=== PATIENT | female | born 1955 | race Caucasian/White ===

== ENCOUNTER 2023-02-03 11:03 | Emergency (ER) | payer OTHER, SELFPAY ==
--- NOTE | 2023-02-03 | DI.CT.S_ITS ---
PROCEDURE: CT ANGIO HEAD AND NECK INDICATIONS: POS BEFAST TECHNIQUE: After the administration of intravenous contrast, 1 mm thick sections acquired from the aortic arch through the [place] of [place]. Post-contrast 4.5 mm thick sections then re-acquired from the foramen magnum to the vertex. 3-dimensional rttkeko-xvypxmfuz-stmxencmgf (MIP) and/or volume rendering reformats were acquired of the central intracranial vasculature and neck separately. For radiation dose reduction, the following was used: automated exposure control, adjustment of mA and/or kV according to patient size. COMPARISON: [facility], MR, MR BRAIN WITHOUT CONTRAST, 12/10/2022, 14:44. [facility], CT, CT ANGIO HEAD AND NECK, 12/10/2022, 14:17. FINDINGS: Image quality: Excellent. BRAIN: CSF spaces: Ventricles are normal in size and shape. Basal cisterns are patent. No extra-axial fluid collections. Brain: No midline shift. No intracranial bleeds or masses. Gudino-white matter interface appears intact. Skull and face: Calvarium and facial bones appear intact, without suspicious lesions. Orbits appear normal. Sinuses: Sinuses and mastoids are clear. HEAD CT ANGIOGRAPHY: Anterior circulation: Intracranial internal carotid arteries are normal in size and flow. The flow within the paired anterior cerebral arteries is normal and symmetric. Similar appearance of severe narrowing with diminished flow of the M1 segment of the left middle cerebral artery. The right middle cerebral artery is patent demonstrating normal caliber and enhancement. No aneurysms are seen. Posterior circulation: There is origin of the posterior cerebral arteries bilaterally. Visualized portions of the vertebral arteries demonstrate normal caliber, and join to form a normal appearing basilar artery. Flow within the posterior cerebral arteries is normal and symmetric. No aneurysms are seen. NECK CT ANGIOGRAPHY: Carotid system: The great vessels demonstrate a conventional anatomy as they arise from the aortic arch. The origins of the common carotid arteries appear patent. The common carotid arteries demonstrate normal caliber and courses. The bifurcation regions are both widely patent. The internal carotid arteries demonstrate normal calibers and courses. Posterior circulation: The origins of the vertebral arteries both appear widely patent. The more superior extracranial portions of both vertebral arteries also demonstrate normal courses and calibers. They join to form a normal appearing basilar artery. Soft tissues: Visualized neck soft tissues demonstrate no suspicious abnormalities. Bones: No suspicious bony lesions. Visualized cervical spine appears normally aligned. IMPRESSION: 1. 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 2. No acute intracranial abnormalities. 3. No hemodynamic significant stenosis in cervical carotid arteries or vertebral arteries bilaterally. Any quantitative measurements of stenosis were performed using NASCET criteria. Dictated by: Meng Hall M.D. on 02/03/2023 at 12:05 Approved by: Meng Hall M.D. on 02/03/2023 at 12:15
[2023-02-03 11:19] VITALS: PULSE 86; O2SAT 98
[2023-02-03 11:21] VITALS: BP 172/70; PULSE 83; RESP 18; TEMP 36.7; O2SAT 98; BMI 29.7
--- NOTE | 2023-02-03 11:25 | DI.RAD.S_ITS ---
PROCEDURE: XR CHEST 1V INDICATIONS: Possible stroke TECHNIQUE: One view of the chest was acquired. COMPARISON: [facility], , CHEST 1 VIEW, 10/10/2015, 13:53. FINDINGS: Surgical changes and devices: Right axillary node resection, left breast clips. Lungs and pleura: Lungs are clear. No pleural effusions or pneumothorax. Mediastinum: Mediastinal contours appear normal. Heart size is normal. Bones and chest wall: No suspicious bony lesions. Overlying soft tissues appear unremarkable. IMPRESSION: No evidence acute pulmonary process. Dictated by: Braxton Bejarano M.D. on 02/03/2023 at 12:14 Approved by: Braxton Bejarano M.D. on 02/03/2023 at 12:15
--- NOTE | 2023-02-03 11:25 | DI.CT.S_ITS ---
PROCEDURE: CT STROKE INDICATIONS: Positive BE-FAST, Stroke symptoms TECHNIQUE: Noncontrast 4.5 mm thick angled axial sections acquired from the foramen magnum to the vertex, with coronal reformats. For radiation dose reduction, the following was used: automated exposure control, adjustment of mA and/or kV according to patient size. COMPARISON: [facility], CT, CT ANGIO HEAD AND NECK, 12/10/2022, 14:17. [facility], MR, MR BRAIN WITHOUT CONTRAST, 12/10/2022, 14:44. [facility], CT, CT ANGIO HEAD AND NECK, 02/03/2023, 11:42. FINDINGS: Image quality: Excellent. CSF spaces: Basal cisterns are patent. No extra-axial fluid collections. Ventricles are normal in size and shape. Brain: No midline shift. No intracranial masses or hemorrhage. Gudino-white matter interface is normal. Skull and face: Calvarium and visualized facial bones are intact, without suspicious lesions. Sinuses: Visualized sinuses and mastoids are clear. IMPRESSION: 1. No acute intracranial abnormalities. The result was discussed with Dr. Stevens. This study fulfills neurological imaging criteria for inclusion or exclusion of acute stroke therapies based on available published neurological imaging guidelines. Dictated by: Meng Hall M.D. on 02/03/2023 at 11:59 Approved by: Meng Hall M.D. on 02/03/2023 at 12:04
[2023-02-03 11:30] VITALS: PULSE 84; O2SAT 100
[2023-02-03 11:42] LABS: Add Manual Diff / Slide Review NO; Basophils Absolute Auto 0 /uL (0-100); Basophils Percent Auto 0.4 % (0-2); Eosinophils Absolute Auto 100 /uL (0-450); Eosinophils Percent Auto 2.6 % (2-4); Hematocrit 37.4 % (36-46); Hemoglobin 12.6 g/dL (12.0-16.0); Lymphocytes Absolute Auto 1500 /uL (1100-4500); Lymphocytes Percent Auto 34.3 % (25-40); Mean Corpuscular HGB Conc 33.6 % (30-36); Mean Corpuscular Hemoglobin 28.7 PG (26-34); Mean Corpuscular Volume 85.3 fL (80-100); Monocytes Absolute Auto 300 /uL (0-900); Monocytes Percent Auto 7.9 % (3-14); Neutrophils Absolute Auto 2400 /uL (1500-7000); Neutrophils Percent Auto 54.8 % (50-75); Platelet Count 227 X10^3/uL (150-400); Red Blood Cell Count 4.39 X10^6/uL (4.0-5.2); Red Cell Distribution Width 12.9 % (11.6-14.8); White Blood Cell Count 4.3 X10^3/uL (4.5-11.0)
[2023-02-03 11:47] LABS: HEMOLYSIS < 15 (0-50)
[2023-02-03 11:48] LABS: Prothrombin Time 11.6 SECONDS (10.1-12.7)
[2023-02-03 11:51] LABS: PTT Partial Thromboplastin Tim 32 SECONDS (26-36)
[2023-02-03 11:52] LABS: Alanine Aminotransferase 26 IU/L (<35); Albumin 4.7 g/dL (3.5-5.0); Albumin Globulin Ratio 1.5 (1.0-2.8); Alkaline Phosphatase 70 U/L (38-126); Aspartate Aminotransferase 28 IU/L (14-36); BUN Creatinine Ratio 19.5 (6-22); Bilirubin Total 0.8 mg/dL (0.2-1.3); Blood Urea Nitrogen 15 mg/dL (7-17); Calcium 9.9 mg/dL (8.4-10.2); Carbon Dioxide 29 mmol/L (22-32); Chloride 100 mmol/L (98-107); Creatine Kinase 110 U/L (30-135); Estimated Glomerular Filt Rate > 60 mL/min (>60); Globulin 3.2 g/dL (1.7-4.1); Glucose 110 mg/dL (80-110); Potassium 4.4 mmol/L (3.4-5.1); Sodium 137 mmol/L (137-145); Total Protein 7.9 g/dL (6.3-8.2)
[2023-02-03 12:06] LABS: Troponin I < 0.012 ng/mL (0.01-0.034)
[2023-02-03 12:07] LABS: CKMB % Relative Index 0.7 % (1.5-5.0); Creatine Kinase MB 0.79 ng/mL (<2.37)
--- NOTE | 2023-02-03 12:23 | ED_ITS ---
HPI - Neuro Symptoms/Deficit General Chief Complaint: Neuro Symptoms/Deficit Stated Complaint: thinks she had a little stroke Time Seen by Provider: 02/03/23 11:52 Source: patient Mode of arrival: Wheelchair Limitations: no limitations History of Present Illness HPI Narrative: This is a 68-year-old female with assumed diagnosis of moyamoya after seeing Dr. Rogers from neurovascular at on the 28 of January. Patient presents today she was at yoga this morning at 10:30 a.m. was moving sort of [id number] when she got dizzy she describes lightheadedness like she might pass out she developed headache, she felt nausea but no vomiting. She notes that she has been on restrictions in terms of strenuous activity and this is her 1st yoga class since they were lifted. She states her vision was blurry with both eyes. She states headache has been resolving. She denies numbness, tingling or weakness. She denies any speech changes. No loss of bowel or bladder control, no syncope. She is had normal bowel movements with no black or bloody stools. No urinary burning frequency or discharge. She had improvement of the dizziness and states she is almost back to normal. She states her only persistent symptoms little bit of dull headache. She does not on examination with movement of her eyes little bit of dizziness but describes it more being off balance and states movement of her head quickly does this as well. Patient states she had similar symptoms and was at [facility] was worked up for stroke had an MRI that was negative and was referred to for perfusion scan. She had ca theterization angiography of her brain and was told that she had thrombosis or occlusion in 1 of the vessels that they state is old, they did not think that she is had prior stroke but stated she was high risk. She has not an aspirin 81 mg daily, Plavix 75 mg daily, lisinopril 5 mg, paroxetine 10 mg rosuvastatin 40 mg as well as vitamin-C and vitamin-D. She states she had bilateral mastectomy for breast cancer 1997 with chemo and radiation. She states her only allergy is nausea vomiting with codeine. No tobacco, alcohol or illicit. Dr. Carroll is her primary care physician. She states symptoms are a little bit similar to what she had at [facility] but she would not have presented if she had felt like she might pass out. She has not had any new medication changes since November. She is accompanied by her daughter. On Anticoagulants: Yes (Plavix) Related Data Allergies Allergy/AdvReac Type Severity Reaction Status Date / Time hydromorphone AdvReac Unknown PT DIDN'T Unverified 03/09/18 12:52 LIKE HOW IT MADE HER FEEL. Review of Systems Review of Systems ROS Unobtainable: All systems reviewed & are unremarkable except as noted in HPI and below Hematologic/Lymphatic On Anticoagulants: Yes (Plavix) Exam Narrative Exam Narrative: GEN: well nourished, well appearing female, alert and oriented x 3, patient appears to be in mild distress. HEENT: Atraumatic, pupils are equal round reactive to light, extraocular movements are intact, no nystagmus, nares are clear, TMs are clear with no fluid, there is no conjunctival pallor. Throat is clear without any exudates, erythema, tonsillar enlargement or uvular deviation, no facial droop. HEART: Regular rate and rhythm without murmur, clicks, rubs. pulses are equal in upper and lower extremities LUNGS:Lungs clear to auscultation, no wheezes, rales, crackles, chest moves symmetrically ABD:bowel sounds normal, soft, non-tender, no guarding, rebound, rigidity, no masses noted, no hepatosplenomegaly :No CVA tenderness MSCL: Non-tender, no muscle atrophy, muscles strength 5/5 upper and lower extremities, full range of motion, normal gait NEURO:CN 2-12 intact, sensation normal, finger nose finger test normal, heel herzog test normal. SKIN: No rash, erythema or other skin changes Initial Vital Signs Initial Vital Signs: Vital Signs Pulse Rate 86 02/03/23 11:19 Pulse Oximetry 98 02/03/23 11:19 Scores NIH Stroke Scale Level of Conciousness: Alert, keenly responsive Ask month/age: Answers both questions correctly. Open/close eyes, close hand: Performs both tasks correctly Best gaze horizontal: Normal Visual orellana: No visual loss Facial palsy: Normal symetrical movement Left arm drift: No drift for full 10 sec Right arm drift: No drift for full 10 sec Left leg drift: No drift for full 5 sec Right leg drift: No drift for full 5 sec Limb ataxia: Absent Sensory on face/arms/legs: Normal, no sensory loss Best language: No aphasia, normal Dysarthria: Normal Extinction or inattention: No abnormality Total NIH Stroke scale score: 0 Course Orders Ordered: ED Orders 02/03/23 11:25 CT Stroke Stat XR chest 1V Stat Urine Drug Screen, Rapid Stat 02/03/23 11:30 Complete Blood Count AUTO DIFF Stat Comprehensive Metabolic Panel Stat Magnesium Stat PTT Partial Thromboplastin Lex Stat Prothrombin Time INR Stat Troponin & CK Cardiac Panel Stat 02/03/23 12:31 EKG-12 Lead Stat 02/03/23 13:27 COVID19 -Nasal RAPID Stat Discontinued Medications Ondansetron HCl (Ondansetron 4 Mg Odt) 4 mg SL NOW PRN PRN Reason: Nausea And Vomiting Ondansetron HCl (Ondansetron 4 Mg/2 Ml Inj) 4 mg IV NOW PRN PRN Reason: Nausea And Vomiting Vital Signs Vital signs: Vital Signs - 8 hr 02/03/23 11:30 02/03/23 13:33 02/03/23 13:37 Pulse Rate 84 74 73 Respiratory Rate 24 Blood Pressure Pulse Oximetry 100 99 100 02/03/23 13:37 Pulse Rate Respiratory Rate Blood Pressure 126/66 Pulse Oximetry MDM - Neuro Symptoms/Deficit Lab Data 02/03/23 11:30 02/03/23 11:30 Labs: Lab Results 02/03/23 02/03/23 02/03/23 Range/Units 11:25 11:30 11:30 WBC 4.3 L (4.5-11.0) X10^3/uL RBC 4.39 (4.0-5.2) X10^6/uL Hgb 12.6 (12.0-16.0) g/dL Hct 37.4 (36-46) % MCV 85.3 (80-100) fL MCH 28.7 (26-34) PG MCHC 33.6 (30-36) % RDW 12.9 (11.6-14.8) % Plt Count 227 (150-400) X10^3/uL Neut % (Auto) 54.8 (50-75) % Lymph % (Auto) 34.3 (25-40) % [place]aton % (Auto) 7.9 (3-14) % Eos % (Auto) 2.6 (2-4) % Baso % (Auto) 0.4 (0-2) % Neut # (Auto) 2400 (9776-8077) /uL Lymph # (Auto) 1500 (6100-1475) /uL Eaton # (Auto) 300 (0-900) /uL Eos # (Auto) 100 (0-450) /uL Baso # (Auto) 0 (0-100) /uL PT 11.6 (10.1-12.7) SECONDS INR 1.0 (0.9-1.3) APTT 32 (26-36) SECONDS Sodium (137-145) mmol/L Potassium (3.4-5.1) mmol/L Chloride (98-107) mmol/L Carbon Dioxide (22-32) mmol/L BUN (7-17) mg/dL Creatinine (0.52-1.04) mg/dL Estimated GFR (>60) mL/min BUN/Creatinine Ratio (6-22) Glucose (80-110) mg/dL Calcium (8.4-10.2) mg/dL Magnesium (1.6-2.3) mg/dL Total Bilirubin (0.2-1.3) mg/dL AST (14-36) IU/L ALT (<35) IU/L Alkaline Phosphatase (38-126) U/L Total Creatine Kinase (30-135) U/L CK-MB (CK-2) (<2.37) ng/mL CK-MB (CK-2) Rel Index (1.5-5.0) % Troponin I (0.01-0.034) ng/mL Total Protein (6.3-8.2) g/dL Albumin (3.5-5.0) g/dL Globulin (1.7-4.1) g/dL Albumin/Globulin Ratio (1.0-2.8) U Opiates 300ng/mL cut Negative (Negative) Ur Oxycodone Screen Negative (Negative) Urine Methadone Screen Negative (Negative) Ur Barbiturates Screen Negative (Negative) U Tricyclic Antidepress Negative (Negative) Ur Phencyclidine Scrn Negative (Negative) Ur Amphetamines Screen Negative (Negative) U Methamphetamines Scrn Negative (Negative) Ur MDMA Scrn (Ecstasy) Negative (Negative) U Benzodiazepines Scrn Negative (Negative) Urine Cocaine Screen Negative (Negative) U Marijuana (THC) Screen Negative (Negative) SARS-CoV-2 (PCR) (Negative) 02/03/23 02/03/23 Range/Units 11:30 13:27 WBC (4.5-11.0) X10^3/uL RBC (4.0-5.2) X10^6/uL Hgb (12.0-16.0) g/dL Hct (36-46) % MCV (80-100) fL MCH (26-34) PG MCHC (30-36) % RDW (11.6-14.8) % Plt Count (150-400) X10^3/uL Neut % (Auto) (50-75) % Lymph % (Auto) (25-40) % Eaton % (Auto) (3-14) % Eos % (Auto) (2-4) % Baso % (Auto) (0-2) % Neut # (Auto) (2821-8869) /uL Lymph # (Auto) (9213-1056) /uL Eaton # (Auto) (0-900) /uL Eos # (Auto) (0-450) /uL Baso # (Auto) (0-100) /uL PT (10.1-12.7) SECONDS INR (0.9-1.3) APTT (26-36) SECONDS Sodium 137 (137-145) mmol/L Potassium 4.4 (3.4-5.1) mmol/L Chloride 100 (98-107) mmol/L Carbon Dioxide 29 (22-32) mmol/L BUN 15 (7-17) mg/dL Creatinine 0.77 (0.52-1.04) mg/dL Estimated GFR > 60 (>60) mL/min BUN/Creatinine Ratio 19.5 (6-22) Glucose 110 (80-110) mg/dL Calcium 9.9 (8.4-10.2) mg/dL Magnesium 2.0 (1.6-2.3) mg/dL Total Bilirubin 0.8 (0.2-1.3) mg/dL AST 28 (14-36) IU/L ALT 26 (<35) IU/L Alkaline Phosphatase 70 (38-126) U/L Total Creatine Kinase 110 (30-135) U/L CK-MB (CK-2) 0.79 (<2.37) ng/mL CK-MB (CK-2) Rel Index 0.7 L (1.5-5.0) % Troponin I < 0.012 (0.01-0.034) ng/mL Total Protein 7.9 (6.3-8.2) g/dL Albumin 4.7 (3.5-5.0) g/dL Globulin 3.2 (1.7-4.1) g/dL Albumin/Globulin Ratio 1.5 (1.0-2.8) U Opiates 300ng/mL cut (Negative) Ur Oxycodone Screen (Negative) Urine Methadone Screen (Negative) Ur Barbiturates Screen (Negative) U Tricyclic Antidepress (Negative) Ur Phencyclidine Scrn (Negative) Ur Amphetamines Screen (Negative) U Methamphetamines Scrn (Negative) Ur MDMA Scrn (Ecstasy) (Negative) U Benzodiazepines Scrn (Negative) Urine Cocaine Screen (Negative) U Marijuana (THC) Screen (Negative) SARS-CoV-2 (PCR) Negative (Negative) Urine Dip Bedside Urine Glucose Negative Bedside Urine Bilirubin - Negative Bedside Urine Ketone - Negative Urine Specific Hernandez 1.005 Bedside Urine Occult Blood - Negative Bedside Urine pH 7.0 Bedside Urine Protein - Negative Bedside Urine Urobilinogen - Negative Bedside Urine Nitrite - Negative Bedside Urine Leukocytes - Negative Esterase Imaging Data CT scan - head: Radiologist's Impression: Jaqueline Macario??68??F??1955 ? Allergy/Adv: hydromorphone Close Chest X-Ray (Signed) Braxton Bejarano - 02/03/[address] (Signed) Meng Hall - 02/03/23 Head/Neck CTA (Signed) Meng Hall - 02/03/23 [facility] [address] CT Scan Report Signed Patient: Jaqueline Macario MR#: [id number] : 1955 Acct:[id number] Age/Sex: 68 / F Date of Service: 02/03/23 Loc: ED Accession Number: [id number] ?? Procedure: CT Stroke Ordering Provider: Salma Stevens D.O. PROCEDURE:? CT STROKE ? INDICATIONS:? Positive BE-FAST, Stroke symptoms ? TECHNIQUE:? Noncontrast 4.5 mm thick angled axial sections acquired from the foramen magnum to the vertex, with coronal reformats.? For radiation dose reduction, the following was used:? automated exposure control, adjustment of mA and/or kV according to patient size.? ? COMPARISON:? [facility], CT, CT ANGIO HEAD AND NECK, 12/10/2022, 14:17.? [facility], MR, MR BRAIN WITHOUT CONTRAST, 12/10/2022, 14:44.? [facility], CT, CT ANGIO HEAD AND NECK, 02/03/2023, 11:42. ? FINDINGS:? Image quality:? Excellent.? ? CSF spaces:? Basal cisterns are patent.? No extra-axial fluid collections.? Ventricles are normal in size and shape.? ? Brain:? No midline shift.? No intracranial masses or hemorrhage.? Gudino-white matter interface is normal.? ? Skull and face:? Calvarium and visualized facial bones are intact, without suspicious lesions.? ? Sinuses:? Visualized sinuses and mastoids are clear.? ? IMPRESSION:? ? 1. No acute intracranial abnormalities. ? The result was discussed with Dr. Stevens. ? This study fulfills neurological imaging criteria for inclusion or exclusion of acute stroke therapies based on available published neurological imaging guidelines.? ? ? Dictated by: Meng Hall M.D. on 02/03/2023 at 11:59 ? ? Approved by: Meng Hall M.D. on 02/03/2023 at 12:04?? CTA - brain/neck: Radiologist's Impression: Close Chest X-Ray (Signed) Braxton Bejarano - 02/03/[address] (Signed) Meng Hall - 02/03/23 Head/Neck CTA (Signed) Meng Hall - 02/03/23 Launch?Image [address] [address] [address] Scan Report Signed Patient: Jaqueline Macario MR#: [id number] : 1955 Acct:[id number] Age/Sex: 68 / F Date of Service: 02/03/23 Loc: ED Accession Number: [id number] ?? Procedure: CT angio head and neck Ordering Provider: Salma Stevens D.O. PROCEDURE:? CT ANGIO HEAD AND NECK ? INDICATIONS:? POS BEFAST ? TECHNIQUE:? After the administration of intravenous contrast, 1 mm thick sections acquired from the aortic arch through the [place] of [place].? Post-contrast 4.5 mm thick sections then re-acquired from the foramen magnum to the vertex.? 3-dimensional kjplegj-iqvuchvrv-cgdnyykano (MIP) and/or volume rendering reformats were acquired of the central intracranial vasculature and neck separately. For radiation dose reduction, the following was used:? automated exposure control, adjustment of mA and/or kV according to patient size.? ? COMPARISON:? [facility], MR, MR BRAIN WITHOUT CONTRAST, 12/10/2022, 14:44.? [facility], CT, CT ANGIO HEAD AND NECK, 12/10/2022, 14:17. ? FINDINGS:? Image quality:? Excellent.? ? BRAIN:? CSF spaces:? Ventricles are normal in size and shape.? Basal cisterns are patent.? No extra-axial fluid collections.? ? Brain:? No midline shift.? No intracranial bleeds or masses.? Gudino-white matter interface appears intact.? ? Skull and face:? Calvarium and facial bones appear intact, without suspicious lesions.? Orbits appear normal.? ? Sinuses:? Sinuses and mastoids are clear.? ? HEAD CT ANGIOGRAPHY:? Anterior circulation:? Intracranial internal carotid arteries are normal in size and flow.? The flow within the paired anterior cerebral arteries is normal and symmetric.? ? Similar appearance of severe narrowing with diminished flow of the M1 segment of the left middle cerebral artery.? The right middle cerebral artery is patent demonstrating normal caliber and enhancement. ? No aneurysms are seen.? ? Posterior circulation:? There is origin of the posterior cerebral arteries bilaterally.? Visualized portions of the vertebral arteries demonstrate normal caliber, and join to form a normal appearing basilar artery.? Flow within the posterior cerebral arteries is normal and symmetric.? No aneurysms are seen.? ? NECK CT ANGIOGRAPHY:? Carotid system:? The great vessels demonstrate a conventional anatomy as they arise from the aortic arch.? The origins of the common carotid arteries appear patent.? The common carotid arteries demonstrate normal caliber and courses.? The bifurcation regions are both widely patent.? The internal carotid arteries demonstrate normal calibers and courses.? ? Posterior circulation:? The origins of the vertebral arteries both appear widely patent.? The more superior extracranial portions of both vertebral arteries also demonstrate normal courses and calibers.? They join to form a normal appearing basilar artery.? ? Soft tissues:? Visualized neck soft tissues demonstrate no suspicious abnormalities.? ? Bones:? No suspicious bony lesions.? Visualized cervical spine appears normally aligned.? IMPRESSION:? ? 1. No significant change in high-grade stenosis/near occlusion of the M1 segment of the left middle cerebral artery.? ? 2. No acute intracranial abnormalities. ? 3. No hemodynamic significant stenosis in cervical carotid arteries or vertebral arteries bilaterally. ? ? Any quantitative measurements of stenosis were performed using NASCET criteria.? ? ? Dictated by: Meng Hall M.D. on 02/03/2023 at 12:05 ? ? Approved by: Meng Hall M.D. on 02/03/2023 at 12:15?? Chest x-ray: Radiologist's Impression: [place] [address] XRay Report Signed Patient: Jaqueline Macario MR#: [id number] : 1955 Acct:[id number] Age/Sex: 68 / F Date of Service: 02/03/23 Loc: ED Accession Number: [id number] ?? Procedure: XR chest 1V Ordering Provider: Salma Stevens D.O. PROCEDURE:? XR CHEST 1V ? INDICATIONS:? Possible stroke ? TECHNIQUE:? One view of the chest was acquired.? ? COMPARISON:? [facility], CHEST 1 VIEW, 10/10/2015, 13:53. ? FINDINGS:? ? Surgical changes and devices:? Right axillary node resection, left breast clips. ? Lungs and pleura:? Lungs are clear.? No pleural effusions or pneumothorax.? ? Mediastinum:? Mediastinal contours appear normal.? Heart size is normal.? ? Bones and chest wall:? No suspicious bony lesions.? Overlying soft tissues appear unremarkable.? ? IMPRESSION:? No evidence acute pulmonary process. ? ? ? Dictated by: Braxton Bejarano M.D. on 02/03/2023 at 12:14 ? ? Approved by: Braxton Bejarano M.D. on 02/03/2023 at 12:15?? ECG Data Attestation: I personally reviewed and interpreted this ECG as follows: Interpretation: Sinus rhythm rate of 64 IA 180 QRS of 92 QTC of 406. No acute ST changes appreciated. MDM Narrative Medical decision making narrative: This is a 68-year-old female who presents with complaint of lightheadedness almost near syncope but also a little bit of vertigo symptoms similar to an episode she had the cause her to be admitted at [facility] there was suspicion for stroke she had MR that was negative but was sent to [facility] where she would an angiography of her brain on Wednesday and was told they suspect or having assumed diagnosis of moyamoya they told her she has not had a stroke but did have occlusion of 1 of her vessels and she is supposed. Patient's NIH is 0 she did have a little bit of vertigo symptoms with movement, she has actually seen ENT in the past and been told the bones in her left ear are broken, she has not had vestibular testing in the past. Her CT angio today does not show new change. Discussed with patient I do not have high suspicion for stroke she defers MRI workup. Patient had deferred anything for her symptoms here such as meclizine. Patient had ambulation trial in the department. Discharge Plan Departure Patient Disposition: Home Clinical Impression: Dizziness Activity Restrictions/Additional Instructions: Follow-up with your neurology team at [facility]. You can try meclizine 1-2 tablets if you have vertigo like symptoms this is available [id number]. I would recommend following up with ENT at your appointment tomorrow to talk to them about vertigo or vestibular testing. Please return for new or worsening symptoms, severe headaches, new vision changes, rapidly worsening symptoms, new numbness, tingling weakness facial droop or difficulty with ambulation or other new or concerning changes. Referrals: Isela Stafford ARNP [Primary Care Provider] - Stand Alone Forms: Patient Portal/API
[2023-02-03 13:33] VITALS: PULSE 74; O2SAT 99
[2023-02-03 13:37] VITALS: BP 126/66; PULSE 73; RESP 24; O2SAT 100
--- NOTE | 2023-02-03 13:41 | PC.NURSE ---
Patient was able to walk to bathroom and back unassisted. Ambulation assessment done RN and Physician notified
[2023-02-03 13:49] LABS: UR Morphine/Opiate cutoff 300 Negative (Negative); Ur Creatinine Normal (Normal); Ur Specific Gravity Normal (Normal); Urine Amphetamines Negative (Negative); Urine Barbiturates Negative (Negative); Urine Benzodiazepines Negative (Negative); Urine Cocaine Negative (Negative); Urine MDMA Negative (Negative); Urine Methadone Negative (Negative); Urine Methamphetamines Negative (Negative); Urine Oxycodone Negative (Negative); Urine Phencyclidine Negative (Negative); Urine Tetrahydrocannabinol Negative (Negative); Urine Tricyclic Antidepressant Negative (Negative); Urine pH Normal (Normal)
[2023-02-03 13:55] LABS: COVID19 -Nasal RAPID Negative (Negative)
== END 2023-02-03 13:53 | disposition home or self-care (01) ==
PROVIDERS: Emergency Provider Emergency Medicine; Family Provider Nurse Practitioner Family; PCP Nurse Practitioner Family
DX: R42 Dizziness and giddiness (principal); R07.9 Chest pain, unspecified; Z79.01 Long term (current) use of anticoagulants; Z20.822 Contact with and (suspected) exposure to COVID-19; R29.700 NIHSS score 0
CPT/HCPCS: 36415; 70450; 70496; 70498; 71045; 80053; 80305; 81003; 82550; 82553; 83735; 84484; 85025; 85610; 85730; 87635; 93005; 99284; C9803; Q9967

== ENCOUNTER 2023-10-02 14:31 | Emergency (ER) | payer OTHER, SELFPAY ==
[2023-10-02 14:59] VITALS: BP 154/69; PULSE 81; RESP 20; TEMP 36.6; O2SAT 99; BMI 31.6
--- NOTE | 2023-10-02 15:56 | ED.BACK ---
HPI - Back Pain/Injury General Chief Complaint: Back Pain/Injury Stated Complaint: heard loud pop from back, can't move very well Time Seen by Provider: 10/02/23 15:50 Source: patient History of Present Illness HPI Narrative: Patient is a 68-year-old female with history of mi myoma diagnosed at [facility] in January she takes aspirin presenting today with acute low back pain. Reports that she was bending over getting something out of her trailer when she heard a very loud pop in her low back. She does have a weird sensation kind of in her groin but no numbness or tingling down her legs no changes in bowel or bladder habits no urinary incontinence. She is been icing it not really taking any medication yet. Denies any fall. Related Data Previous Rx's Medication Instructions Recorded lidocaine 5 % topical patch 1 patch topical DAILY PRN pain 10/02/23 (scale score 1-3) #30 ea methocarbamol 500 mg tablet 500 mg PO TID PRN muscle spasm #10 10/02/23 tabs Allergies Allergy/AdvReac Type Severity Reaction Status Date / Time hydromorphone AdvReac Unknown PT DIDN'T Verified 10/02/23 15:06 LIKE HOW IT MADE HER FEEL. Patient History Social History Smoking Status: Never smoker Smoking Status: Never smoker alcohol intake frequency: 0-2 drinks per day Substance Use Type: does not use Exam Initial Vital Signs Initial Vital Signs: Vital Signs Temperature 97.8 F 10/02/23 14:59 Pulse Rate 81 10/02/23 14:59 Respiratory Rate 20 10/02/23 14:59 Blood Pressure 154/69 H 10/02/23 14:59 Pulse Oximetry 99 10/02/23 14:59 Oxygen Delivery Method Room Air 10/02/23 14:59 GENERAL: Well-appearing, well-nourished and in no acute distress. CARDIOVASCULAR: peripheral pulses in tact, cap refill <2 sec RESPIRATORY: No respiratory distress, speaks in full sentences without difficulty BACK: Midline tenderness lumbosacral area some right lateral lumbar pain as well. EXTREMITIES: Normal range of motion, no clubbing or edema. Neurovascularly intact NEUROLOGICAL: Cranial nerves II through XII grossly intact. Normal gait and speech. SKIN: Warm, dry, no petechiae, no rashes or lesions. Course Orders Ordered: Discontinued Medications Ketorolac Tromethamine (Ketorolac 30 Mg/Ml Vial) 30 mg IM NOW ONE Stop: 10/02/23 16:03 Last Admin: 10/02/23 16:11 Dose: 30 mg Documented By: MICHAEL Lidocaine (Lidocaine Patch 1 Each Adh..Patch) 1 each TOP NOW ONE Stop: 10/02/23 16:44 Last Admin: 10/02/23 16:55 Dose: 1 each Documented By: ENEDELIA Methocarbamol (Methocarbamol 500 Mg Tablet) 500 mg PO NOW ONE Stop: 10/02/23 16:37 Last Admin: 10/02/23 16:54 Dose: 500 mg Documented By: ENEDELIA Vital Signs Vital signs: Vital Signs - 8 hr 10/02/23 14:59 10/02/23 17:00 Temperature 97.8 F Pulse Rate 81 72 Respiratory Rate 20 16 Blood Pressure 154/69 H 188/85 H Pulse Oximetry 99 99 Oxygen Delivery Method Room Air Room Air MDM - Back Pain/Injury MDM Narrative Medical decision making narrative: Patient 68-year-old female presents today with acute back injury. No fall no cauda equina symptoms. She actually is doing quite well with use. She was given a shot of Toradol here in the ED. we discussed pain medication at home at this time she would like to avoid narcotics but open toe muscle relaxer. Unsure if she will make it pharmacy before the closure given 1 tablet of methocarbamol prior to discharge. As time supportive care only. Discharge Plan Departure Patient Disposition: Home Clinical Impression: Back pain Instructions: DI for Low Back Pain Activity Restrictions/Additional Instructions: *You have been diagnosed with back pain *What to do: You may require outpatient MRI. Increase activity as tolerated no heavy lifting. May ice or heat as needed. *Continue to take medications as directed Lidocaine patch at area of pain for 12 hours only and remove Methocarbamol 500 mg every 8 hours if needed for muscle spasm recommend trying at bedtime. *Follow up with your primary care provider in 2-3 days or call [phone] *Return to ER if you should have [or] any new, worsening or concerning symptoms Prescriptions: New methocarbamol 500 mg tablet 500 mg PO TID PRN (Reason: muscle spasm) Qty: 10 0RF lidocaine 5 % adhesive patch,medicated 1 patch topical DAILY PRN (Reason: pain (scale score 1-3)) Qty: 30 0RF Rx Instructions: leave on most painful area for up to 12 hrs, then remove Referrals: Isela Stafford ARNP [Primary Care Provider] - Stand Alone Forms: Patient Portal/API
[2023-10-02] MEDS: KETOROLAC 30 MG/ML VIAL IM (16:11)
[2023-10-02] MEDS: methocarbamoL 500 MG TABLET PO (16:54)
[2023-10-02] MEDS: LIDOCAINE PATCH 1 EACH ADH..PATCH TOP (16:55)
[2023-10-02 17:00] VITALS: BP 188/85; PULSE 72; RESP 16; O2SAT 99
[2023-10-02 17:57] VITALS: BP 169/79; PULSE 78; RESP 18; O2SAT 98
== END 2023-10-02 17:59 | disposition home or self-care (01) ==
PROVIDERS: Emergency Provider Emergency Medicine; Family Provider Nurse Practitioner Family; PCP Nurse Practitioner Family
DX: M54.50 Low back pain, unspecified (principal)
CPT/HCPCS: 96372; 99283; J1885

== ENCOUNTER 2023-10-30 15:20 | Emergency (ER) | payer OTHER, SELFPAY ==
[2023-10-30 15:30] VITALS: BP 170/79; PULSE 115; RESP 18; TEMP 36.9; O2SAT 99; BMI 31.6
[2023-10-30 15:31] VITALS: PULSE 109; O2SAT 97
--- NOTE | 2023-10-30 15:35 | DI.RAD.S_ITS ---
PROCEDURE: XR CHEST 1V INDICATIONS: SOB TECHNIQUE: One view of the chest was acquired. COMPARISON: [facility], [facility], XR CHEST 1V, 02/03/2023, 11:37. [facility], [facility], CHEST 1 VIEW, 10/10/2015, 13:53. FINDINGS: Surgical changes and devices: Right axillary surgical clips hand left breast clip. Lungs and pleura: Lungs are clear. No pleural effusions or pneumothorax. Mediastinum: Mediastinal contours appear normal. Heart size is normal. Bones and chest wall: No suspicious bony lesions. Overlying soft tissues appear unremarkable. IMPRESSION: No acute cardiopulmonary abnormality is seen. Dictated by: Shahid Vega M.D. on 10/30/2023 at 14:53 Approved by: Shahid Vega M.D. on 10/30/2023 at 14:53
--- NOTE | 2023-10-30 15:44 | ED.ASTHMA ---
HPI - Asthma General Chief Complaint: Asthma Stated Complaint: ASTHMA ATTACK inhaler not working Time Seen by Provider: 10/30/23 15:29 Source: patient Mode of arrival: Ambulatory History of Present Illness HPI Narrative: Patient has a distant history of asthma but states she is not had an asthma attack in many years.? She states that after lunch today she had an episode of vomiting.? She also started coughing afterwards.? She then started to have wheezing.? She does not have an albuterol inhaler.? She has a nebulizer but does not have any solution for this.? She stated that the wheezing was persistent and she continued to have vomiting.? Right now she states she feels somewhat better.? Wheezing has improved.? No longer nauseous.? No chest pain. Related Data Previous Rx's Medication Instructions Recorded lidocaine 5 % topical patch 1 patch topical DAILY PRN pain 10/02/23 (scale score 1-3) #30 ea methocarbamol 500 mg tablet 500 mg PO TID PRN muscle spasm #10 10/02/23 tabs albuterol sulfate 2.5 mg/3 mL 2.5 mg (3 mL) inhalation Q4-6H PRN 10/30/23 (0.083 %) solution for nebulization shortness of breath or wheezing #75 mL Allergies Allergy/AdvReac Type Severity Reaction Status Date / Time hydromorphone AdvReac Unknown PT DIDN'T Verified 10/30/23 15:37 LIKE HOW IT MADE HER FEEL. Review of Systems Cardiovascular Cardiovascular: Reports system reviewed and no additional complaints, except as documented Respiratory Respiratory: Reports system reviewed and no additional complaints, except as documented Gastrointestinal Gastrointestinal: Reports system reviewed and no additional complaints, except as documented Patient History Social History Smoking Status: Never smoker Smoking Status: Never smoker alcohol intake frequency: 0-2 drinks per day Substance Use Type: does not use Exam Initial Vital Signs Initial Vital Signs: Vital Signs Temperature 98.4 F 10/30/23 15:30 Pulse Rate 115 H 10/30/23 15:30 Respiratory Rate 18 10/30/23 15:30 Blood Pressure 170/79 H 10/30/23 15:30 Pulse Oximetry 99 10/30/23 15:30 Oxygen Delivery Method Room Air 10/30/23 15:30 HENMT Head: normal to inspection and normocephalic Resp Effort & Inspection: normal respiratory effort, not labored, no respiratory distress and not tachypneic Auscultation: clear to auscultation bilaterally Cardio Rate: regular rate Skin General: no rashes or lesions noted Neuro General: patient alert, patient awake and moves all extremities Extrem General: normal to inspection and capillary refill normal Course Orders Ordered: ED Orders 10/30/23 15:35 XR chest 1V Stat EKG-12 Lead Stat Discontinued Medications Albuterol (Albuterol 2.5 Mg/3 Ml Neb (Adult)) 2.5 mg INH NOW ONE Stop: 10/30/23 15:36 Last Admin: 10/30/23 16:17 Dose: Not Given Albuterol (Albuterol Hfa Prepack) 1 box MISC DIRECTED ONE Stop: 10/30/23 15:48 Last Admin: 10/30/23 15:52 Dose: 1 box Documented By: MADELAINE Vital Signs Vital signs: Vital Signs - 8 hr 10/30/23 15:30 10/30/23 15:53 Temperature 98.4 F Pulse Rate 115 H 100 H Respiratory Rate 18 18 Blood Pressure 170/79 H Pulse Oximetry 99 98 Oxygen Delivery Method Room Air Room Air Oxygen Flow Rate 0 Fraction of Inspired Oxygen 21 MDM - Asthma Imaging Data Chest x-ray: Radiologist's Impression: PROCEDURE: XR CHEST 1V INDICATIONS: SOB TECHNIQUE: One view of the chest was acquired. COMPARISON: [facility], XR CHEST 1V, 02/03/2023, 11:37. [facility], CHEST 1 VIEW, 10/10/2015, 13:53. FINDINGS: Surgical changes and devices: Right axillary surgical clips hand left breast clip. Lungs and pleura: Lungs are clear. No pleural effusions or pneumothorax. Mediastinum: Mediastinal contours appear normal. Heart size is normal. Bones and chest wall: No suspicious bony lesions. Overlying soft tissues appear unremarkable. IMPRESSION: No acute cardiopulmonary abnormality is seen. ECG Data Attestation: I personally reviewed and interpreted this ECG as follows: Interpretation: Sinus rhythm Ventricular rate 97 Normal axis Normal QRS Normal QTC No ST T wave changes [facility] Narrative Medical decision making narrative: Patient initially had no wheezing upon arrival. We did do a albuterol MDI with a spacer. Her chest x-ray is unremarkable. I suspect that she was having reactive airway most likely because of all the vomiting. Her EKG is unremarkable. No indication for antibiotics. We will send her home with her albuterol MDI. I will refill her albuterol nebulizer. She was given return precautions. She expressed understanding and agreement. Discharge Plan Departure Patient Disposition: Home Clinical Impression: Wheezing Instructions: DI for Reactive Airway Disease-Adult Prescriptions: New albuterol sulfate 2.5 mg /3 mL (0.083 %) solution for nebulization 2.5 mg inhalation Q4-6H PRN (Reason: shortness of breath or wheezing) Qty: 75 0RF No Action methocarbamol 500 mg tablet 500 mg PO TID PRN (Reason: muscle spasm) Qty: 10 0RF lidocaine 5 % adhesive patch,medicated 1 patch topical DAILY PRN (Reason: pain (scale score 1-3)) Qty: 30 0RF Rx Instructions: leave on most painful area for up to 12 hrs, then remove Referrals: Isela Stafford ARNP [Primary Care Provider] - Stand Alone Forms: Patient Portal/API
[2023-10-30] MEDS: ALBUTEROL HFA PREPACK 1 BOX MISC (15:52)
[2023-10-30 15:53] VITALS: PULSE 100; RESP 18; O2SAT 98
[2023-10-30 16:00] VITALS: PULSE 102; O2SAT 98
[2023-10-30 16:01] VITALS: BP 183/78; PULSE 97; RESP 17; O2SAT 100; O2SAT 99
== END 2023-10-30 16:30 | disposition home or self-care (01) ==
PROVIDERS: Emergency Provider Emergency Medicine; Family Provider Nurse Practitioner Family; PCP Nurse Practitioner Family
DX: J45.909 Unspecified asthma, uncomplicated (principal)
CPT/HCPCS: 71045; 93005; 94640; 99281; 99283

== ENCOUNTER 2024-10-21 11:34 | Emergency (ER) | payer OTHER, SELFPAY ==
[2024-10-21] VITALS (16 sets, daily range): BP systolic 130–197; BP diastolic 66–97; PULSE 66–87; RESP 16–18; TEMP 36.9; O2SAT 95–100; BMI 33.0
--- NOTE | 2024-10-21 11:42 | DI.RAD.S_ITS ---
PROCEDURE: XR KNEE LT 3V INDICATIONS: fall TECHNIQUE: 3 views of the knee were acquired. COMPARISON: None. FINDINGS: Bones: Minimally displaced, comminuted left patellar fracture. Remainder of the visualized osseous structures appear intact. No suspicious bony lesions. Soft tissues: Moderate joint effusion. Mild soft tissue swelling of the anterior knee. No suspicious soft tissue calcifications. IMPRESSION: Mildly comminuted, minimally displaced fracture of the left patella with associated joint effusion. Dictated by: Jermaine De La Cruz M.D. on 10/21/2024 at 12:16 Approved by: Jermaine De La Cruz M.D. on 10/21/2024 at 12:17
--- NOTE | 2024-10-21 11:43 | DI.RAD.S_ITS ---
PROCEDURE: XR WRIST RT MIN 3V INDICATIONS: fall TECHNIQUE: 4 views of the wrist were acquired. COMPARISON: None. FINDINGS: Bones: No fractures or dislocations. No suspicious bony lesions. Degenerative changes are seen, which are worst involving the radial aspect of the carpus. Soft tissues: No suspicious soft tissue calcifications. IMPRESSION: No displaced fractures can be seen on these plain film images. If there is point tenderness (or other clinical suspicion for a fracture not seen on these images) then a dedicated CT could be considered for further evaluation, if clinically appropriate. Dictated by: Pete Samuels M.D. on 10/21/2024 at 11:16 Approved by: Pete Samuels M.D. on 10/21/2024 at 11:17
--- NOTE | 2024-10-21 12:26 | ED.LOWEXIN ---
HPI - Extremity Injury (Lower) General Chief Complaint: Extremity Injury, Lower Stated Complaint: GLF, no deformity, L knee R wrist pain Time Seen by Provider: 10/21/24 12:26 Source: patient and EMS Mode of arrival: EMS History of Present Illness HPI Narrative: patient is a 69-year-old female no significant past medical history presents with EMS for evaluation of mechanical trip and fall. States she was walking on the sidewalk tripped on uneven concrete fell and has pain in her right wrist and left knee. She denies any blood thinners. States that when she fell she did have immediate pain to her left knee right wrist, did hit her head but denies any LOC. States that she has on a baby aspirin daily. States that the pain in her left knee was significant enough that she was unable to bear weight on it therefore EMS was called. Not up-to-date on tetanus Related Data Previous Rx's Medication Instructions Recorded lidocaine 5 % topical patch 1 patch topical DAILY PRN pain 10/02/23 (scale score 1-3) #30 ea methocarbamol 500 mg tablet 500 mg PO TID PRN muscle spasm #10 10/02/23 tabs albuterol sulfate 2.5 mg/3 mL 2.5 mg (3 mL) inhalation Q4-6H PRN 10/30/23 (0.083 %) solution for nebulization shortness of breath or wheezing #75 mL ondansetron 4 mg disintegrating 4 mg PO Q8H PRN nausea and 10/21/24 tablet vomiting 4 days #12 tabs oxycodone-acetaminophen 5 mg-325 1 tab PO TID PRN pain 3 days #9 10/21/24 mg tablet (Percocet) tabs Allergies Allergy/AdvReac Type Severity Reaction Status Date / Time hydromorphone AdvReac Unknown PT DIDN'T Verified 10/30/23 15:37 LIKE HOW IT MADE HER FEEL. Review of Systems Review of Systems Narrative: General: Denies fever, chills, weight loss HEENT: Denies headache, eye drainage, eye irritation, head trauma, sore throat, voice change Cardiovascular: Denies any chest pain, palpitations, shortness of breath, tachycardia Respiratory: Denies any shortness of breath, cough, wheeze, stridor GI/: Denies any abdominal pain, nausea, vomiting, diarrhea, bright red blood per rectum, melanotic stools, urinary frequency, urinary retention, dysuria, hematuria MSK: positive left knee pain, positive right wrist pain Skin: Denies any rashes, lesions, discoloration Neuro: Denies any headache, lightheadedness, dizziness, fainting, weakness Psych: Denies SI/HI Patient History Social History Smoking Status: Never smoker Smoking Status: Never smoker alcohol intake frequency: 0-2 drinks per day Substance Use Type: does not use Exam Narrative Exam Narrative: General: Cooperative, comfortable, well-developed, not in acute distress HEENT: patient with abrasions noted to the right side of her face no foreign body no laceration, PERRLA, normal sclera, eyelids normal, Neck: Active full range of motion, atraumatic Chest: Normal to inspection, negative crepitus, no overlying erythema ecchymosis Respiratory: Normal respiratory effort, not in acute respiratory distress, clear to auscultation bilaterally negative cough, wheeze, tachypnea, rhonchi, rales Cardiology: Regular rate rhythm negative gallop, murmur, rubs GI/: Normal to inspection, soft, nonrigid, no tenderness to palpation, exam deferred MSK: patient with pain on palpation of the left knee, abrasion noted, decreased passive active range of motion secondary to pain but neurovascularly intact, there is ecchymosis to the right posterior aspect of the right hand but neurovascularly intact no actual tenderness to palpation of any other bony prominences Skin: No rashes lesions noted Neuro: Alert awake oriented x3, moves all 4 extremities spontaneously, cranial nerves intact, able to answer all questions appropriately follows commands appropriately Psych: Cooperative, negative suicidal or homicidal ideations Initial Vital Signs Initial Vital Signs: Vital Signs Pulse Rate 77 10/21/24 11:39 Pulse Oximetry 97 10/21/24 11:39 Course Orders Ordered: ED Orders 10/21/24 11:42 XR knee LT 3V Stat 10/21/24 11:43 XR wrist RT min 3V Stat 10/21/24 12:41 CT cervical spine wo con Stat CT facial bones wo con Stat CT head/brain wo con Stat Discontinued Medications Diphtheria/Tetanus/Acell Pertussis (Tet,Diph,Pertuss(Acell),Vac/Pf 0.5 Ml Syringe) 0.5 ml IM .ONCE ONE Stop: 10/21/24 12:42 Oxycodone/Acetaminophen (Oxycodone/Acetaminophen 5/325 Tablet) 1 tab PO NOW ONE Stop: 10/21/24 13:52 Vital Signs Vital signs: Vital Signs - 8 hr 10/21/24 11:39 10/21/24 11:40 10/21/24 11:40 Temperature Pulse Rate 77 77 Respiratory Rate Blood Pressure 197/97 H Pulse Oximetry 97 99 Oxygen Delivery Method 10/21/24 11:44 10/21/24 11:57 10/21/24 12:00 Temperature 98.5 F 98.5 F Pulse Rate 85 87 68 Respiratory Rate 16 16 Blood Pressure 156/66 H 156/66 H Pulse Oximetry 95 99 Oxygen Delivery Method Room Air Room Air 10/21/24 12:01 10/21/24 12:01 10/21/24 12:30 Temperature Pulse Rate 70 69 Respiratory Rate Blood Pressure 166/78 H Pulse Oximetry 98 98 Oxygen Delivery Method 10/21/24 12:31 10/21/24 12:31 Temperature Pulse Rate 70 Respiratory Rate Blood Pressure 167/78 H Pulse Oximetry 98 Oxygen Delivery Method MDM - Extremity Injury (Lower) Differential Diagnosis Differential diagnosis: Likely other ( intracranial hemorrhage, cervical neck fracture, facial fracture, patellar fracture, wrist fracture) Imaging Data Extremity x-ray #1: Radiologist's Impression: [place] [address] XRay Report Signed Patient: Jaqueline Macario MR#: [id number] : 1955 Acct:[id number] Age/Sex: 69 / F Date of Service: 10/21/24 Loc: ED Accession Number: [id number] Procedure: XR knee LT 3V Ordering Provider: Ryan Polanco D.O. PROCEDURE: XR KNEE LT 3V INDICATIONS: fall TECHNIQUE: 3 views of the knee were acquired. COMPARISON: None. FINDINGS: Bones: Minimally displaced, comminuted left patellar fracture. Remainder of the visualized osseous structures appear intact. No suspicious bony lesions. Soft tissues: Moderate joint effusion. Mild soft tissue swelling of the anterior knee. No suspicious soft tissue calcifications. IMPRESSION: Mildly comminuted, minimally displaced fracture of the left patella with associated joint effusion. Extremity x-ray #2: Radiologist's Impression: [address] [address] XRay Report Signed Patient: Jaqueline Macario MR#: [id number] : 1955 Acct:[id number] Age/Sex: 69 / F Date of Service: 10/21/24 Loc: ED Accession Number: [id number] Procedure: XR wrist RT min 3V Ordering Provider: Ryan Polanco D.O. PROCEDURE: XR WRIST RT MIN 3V INDICATIONS: fall TECHNIQUE: 4 views of the wrist were acquired. COMPARISON: None. FINDINGS: Bones: No fractures or dislocations. No suspicious bony lesions. Degenerative changes are seen, which are worst involving the radial aspect of the carpus. Soft tissues: No suspicious soft tissue calcifications. IMPRESSION: No displaced fractures can be seen on these plain film images. CT scan - head: Radiologist's Impression: [address] [address] [address] Scan Report Signed Patient: Jaqueline Macario MR#: [id number] : 1955 Acct:[id number] Age/Sex: 69 / F Date of Service: 10/21/24 Loc: ED Accession Number: [id number] Procedure: CT head/brain wo con Ordering Provider: Ryan Polanco D.O. PROCEDURE: CT HEAD/BRAIN WO CON INDICATIONS: Trauma TECHNIQUE: Noncontrast 4.5 mm thick angled axial sections acquired from the foramen magnum to the vertex, with coronal and sagittal reformats. For radiation dose reduction, the following was used: automated exposure control, adjustment of mA and/or kV according to patient size. COMPARISON: None. FINDINGS: Image quality: Diagnostic. CSF spaces: Basal cisterns are patent. No extra-axial fluid collections. The ventricles are symmetric in size and shape. Brain: No intracranial bleeds or masses. There is cerebral volume loss for age, with resultant ventricular and sulcal prominence. There are periventricular and deep white matter chronic small vessel ischemic changes. There is intracranial internal carotid artery atherosclerosis. Skull and face: Calvarium and visualized facial bones appear intact, without suspicious lesions. Sinuses: Visualized sinuses and mastoids are clear. IMPRESSION: 1. CT head without acute intracranial abnormalities or acute calvarial fractures. 2. Age-related senescent changes and sequela of chronic small vessel ischemic disease. CT - cervical spine: Radiologist's Impression: [address] [address] [address] Scan Report Signed Patient: Jaqueline Macario MR#: [id number] : 1955 Acct:[id number] Age/Sex: 69 / F Date of Service: 10/21/24 Loc: ED Accession Number: [id number] Procedure: CT cervical spine wo con Ordering Provider: Ryan Polanco D.O. PROCEDURE: CT CERVICAL SPINE WO CON INDICATIONS: trauma TECHNIQUE: Noncontrast 3 mm thick sections acquired from the skull base to the T4 level. Sagittal and coronal reformats were then constructed. For radiation dose reduction, the following was used: automated exposure control, adjustment of mA and/or kV according to patient size. COMPARISON: None. FINDINGS: Image quality: Diagnostic Bones: No acute fractures or dislocations. No acute compression fractures of the vertebral bodies. Craniocervical junction is intact. C1-C2 relationship is preserved. Visualized superior ribs are intact. Mild multilevel cervical spondylosis. Soft tissues: Prevertebral soft tissues are normal in thickness. No paravertebral hematomas. No apical pneumothoraces. IMPRESSION: No displaced fracture or traumatic subluxation. Ct facial : Radiologist's Impression: [address] [address] [address] Scan Report Signed Patient: Jaqueline Macario MR#: [id number] : 1955 Acct:[id number] Age/Sex: 69 / F Date of Service: 10/21/24 Loc: ED Accession Number: [id number] Procedure: CT facial bones wo con Ordering Provider: Ryan Polanco D.O. PROCEDURE: CT FACIAL BONES WO CON INDICATIONS: trauma, right-sided facial abrasion TECHNIQUE: Noncontrast 2.5 mm thick axial images acquired from the mandible through the frontal sinuses, with coronal and sagittal reformatting. For radiation dose reduction, the following was used: automated exposure control, adjustment of mA and/or kV according to patient size. COMPARISON: None. FINDINGS: Image quality: Diagnostic. Bones and teeth: Orbital valenzuela are intact. Sinus valenzuela show no fracture or deformity. Nasal bones and septum are intact. Visualized portions of the mandible demonstrate no fractures or subluxation. Zygomatic arches are intact. Pterygoid plates are intact. Visualized portions of the skull base and auditory canals are intact. Sinuses: Paranasal sinuses are aerated, without fluid levels, mucosal thickening, or mucoceles. Mastoid air cells are aerated. Soft tissues: Minimal soft tissue edema in the right facial region. No masses, or fluid collections. No enlarged lymph nodes. No soft tissue lacerations or debris. Vascular: Visualized vascular structures appear normal in the absence of contrast. Bony vascular foramina and canals are intact. IMPRESSION: Minimal right facial soft tissue edema. No underlying fracture identified. No fractures identified in the facial bones. MDM Narrative Medical decision making narrative: patient is a 69-year-old female no significant past medical history presents for mechanical trip and fall prior to arrival, tripped on uneven surface landed on her left knee right side of the hand and face no LOC not on blood thinners CT scan without any acute fractures of the head face neck, x-ray of the wrist without any acute fracture, x-ray of the left knee showing nondisplaced patellar fracture, lower extremity neurovascularly intact the left knee does have intact extensor mechanism, we will place patient in a knee brace and have patient follow up with Orthopedic surgery in outpatient setting. Patient verbalized understanding of this strict return precautions given safe for discharge home with outpatient follow up Discharge Plan Departure Patient Disposition: Home Clinical Impression: Closed fracture of left patella, Closed head injury, Abrasion of face, Contusion of hand Activity Restrictions/Additional Instructions: please follow up with Orthopedic surgery Please read the discharge instructions sheet carefully and bring all papers to all doctor follow-up visits, as it may contain information that your doctor may want to see. Disease processes change and evolve, if your symptoms worsen or if you develop any new symptoms that are concerning to you please return for evaluation. Your evaluation today does not show any evidence of any life-threatening/serious illnesses requiring admission to the hospital or surgery. Please follow-up with your doctor for re-evaluation in approximately 1 day. Seek immediate medical attention for any worrisome symptoms. Prescriptions: New oxycodone-acetaminophen [Percocet] 5-325 mg tablet 1 tab PO TID PRN (Reason: pain) 3 Days Qty: 9 0RF ondansetron 4 mg tablet,disintegrating 4 mg PO Q8H PRN (Reason: nausea and vomiting) 4 Days Qty: 12 0RF No Action methocarbamol 500 mg tablet 500 mg PO TID PRN (Reason: muscle spasm) Qty: 10 0RF lidocaine 5 % adhesive patch,medicated 1 patch topical DAILY PRN (Reason: pain (scale score 1-3)) Qty: 30 0RF Rx Instructions: leave on most painful area for up to 12 hrs, then remove albuterol sulfate 2.5 mg /3 mL (0.083 %) solution for nebulization 2.5 mg inhalation Q4-6H PRN (Reason: shortness of breath or wheezing) Qty: 75 0RF Referrals: Bernice Wells MD [Physician] - ( Patellar fracture) Isela Stafford ARNP [Primary Care Provider] - Stand Alone Forms: Patient Portal/API/Survey
--- NOTE | 2024-10-21 12:41 | DI.CT.S_ITS ---
PROCEDURE: CT CERVICAL SPINE WO CON INDICATIONS: trauma TECHNIQUE: Noncontrast 3 mm thick sections acquired from the skull base to the T4 level. Sagittal and coronal reformats were then constructed. For radiation dose reduction, the following was used: automated exposure control, adjustment of mA and/or kV according to patient size. COMPARISON: None. FINDINGS: Image quality: Diagnostic Bones: No acute fractures or dislocations. No acute compression fractures of the vertebral bodies. Craniocervical junction is intact. C1-C2 relationship is preserved. Visualized superior ribs are intact. Mild multilevel cervical spondylosis. Soft tissues: Prevertebral soft tissues are normal in thickness. No paravertebral hematomas. No apical pneumothoraces. IMPRESSION: No displaced fracture or traumatic subluxation. Dictated by: Jermaine De La Cruz M.D. on 10/21/2024 at 13:23 Approved by: Jermaine De La Cruz M.D. on 10/21/2024 at 13:25
--- NOTE | 2024-10-21 12:41 | DI.CT.S_ITS ---
PROCEDURE: CT HEAD/BRAIN WO CON INDICATIONS: Trauma TECHNIQUE: Noncontrast 4.5 mm thick angled axial sections acquired from the foramen magnum to the vertex, with coronal and sagittal reformats. For radiation dose reduction, the following was used: automated exposure control, adjustment of mA and/or kV according to patient size. COMPARISON: None. FINDINGS: Image quality: Diagnostic. CSF spaces: Basal cisterns are patent. No extra-axial fluid collections. The ventricles are symmetric in size and shape. Brain: No intracranial bleeds or masses. There is cerebral volume loss for age, with resultant ventricular and sulcal prominence. There are periventricular and deep white matter chronic small vessel ischemic changes. There is intracranial internal carotid artery atherosclerosis. Skull and face: Calvarium and visualized facial bones appear intact, without suspicious lesions. Sinuses: Visualized sinuses and mastoids are clear. IMPRESSION: 1. CT head without acute intracranial abnormalities or acute calvarial fractures. 2. Age-related senescent changes and sequela of chronic small vessel ischemic disease. Dictated by: Jermaine De La Cruz M.D. on 10/21/2024 at 13:23 Approved by: Jermaine De La Cruz M.D. on 10/21/2024 at 13:23
--- NOTE | 2024-10-21 12:41 | DI.CT.S_ITS ---
PROCEDURE: CT FACIAL BONES WO CON INDICATIONS: trauma, right-sided facial abrasion TECHNIQUE: Noncontrast 2.5 mm thick axial images acquired from the mandible through the frontal sinuses, with coronal and sagittal reformatting. For radiation dose reduction, the following was used: automated exposure control, adjustment of mA and/or kV according to patient size. COMPARISON: None. FINDINGS: Image quality: Diagnostic. Bones and teeth: Orbital valenzuela are intact. Sinus valenzuela show no fracture or deformity. Nasal bones and septum are intact. Visualized portions of the mandible demonstrate no fractures or subluxation. Zygomatic arches are intact. Pterygoid plates are intact. Visualized portions of the skull base and auditory canals are intact. Sinuses: Paranasal sinuses are aerated, without fluid levels, mucosal thickening, or mucoceles. Mastoid air cells are aerated. Soft tissues: Minimal soft tissue edema in the right facial region. No masses, or fluid collections. No enlarged lymph nodes. No soft tissue lacerations or debris. Vascular: Visualized vascular structures appear normal in the absence of contrast. Bony vascular foramina and canals are intact. IMPRESSION: Minimal right facial soft tissue edema. No underlying fracture identified. No fractures identified in the facial bones. Dictated by: Jermaine De La Cruz M.D. on 10/21/2024 at 13:25 Approved by: Jermaine De La Cruz M.D. on 10/21/2024 at 13:27
[2024-10-21] MEDS: TET,DIPH,PERTUSS(ACELL),VAC/PF 0.5 ML SYRINGE IM (13:57)
[2024-10-21] MEDS: OXYCODONE/ACETAMINOPHEN 5/325 TABLET 1 TAB PO (13:57)
== END 2024-10-21 14:27 | disposition home or self-care (01) ==
PROVIDERS: Emergency Provider Student in an Organized Health Care Education/Training Program; Family Provider Nurse Practitioner Family; PCP Nurse Practitioner Family
DX: S82.042A Displaced comminuted fracture of left patella, initial encounter for closed fracture (principal); S09.90XA Unspecified injury of head, initial encounter; S00.81XA Abrasion of other part of head, initial encounter; S60.221A Contusion of right hand, initial encounter; W01.0XXA Fall on same level from slipping, tripping and stumbling without subsequent striking against object, initial encounter; Z79.82 Long term (current) use of aspirin; Z23 Encounter for immunization
CPT/HCPCS: 70450; 70486; 72125; 73110; 73562; 90471; 99284; 90715